=== PATIENT | female | born 1930 | race Caucasian/White ===

== ENCOUNTER 2019-09-22 07:26 | Inpatient (IN) | payer OTHER ==
[~2019-09-22] VITALS: Ht 152.4 cm; Wt 45.5 kg
[2019-09-22 07:26] VITALS: BP 176/99
[~2019-09-22 07:26] MED LIST: BONIVA150 MG PO; CALCIUM + VITA1 EACH; CALCIUM 600 MG1 EAC2 PO; LEVOTHYROXIN0.088 MG PO; MAGNESIUM OXID400 MG PO; NORCO 5-325 TA1 EACH PO; PRAVACHOL20 MG PO; PREMARIN VAGI42.5 G1 VAG; PREMARIN0.45 MG PO
[2019-09-22] MEDS ORDERED: VITAMIN B12-FO1 EAC1 PO (07:43)
[2019-09-22 07:57] LABS: HEMOGLOBIN 13.2 gm/dL (12.0-15.0); MCH 31.7 pg (26.0-34.0); MCHC 32.9 g/dL (28.0-37.0); MCV 96.3 fL (80.0-100.0); PLATELET COUNT 233 thou/uL (150-400); RBC 4.16 mil/uL (4.20-5.00); RDW 14.4 % (10.5-14.5); WBC 5.5 thou/uL (4.0-11.0)
[2019-09-22 08:23] LABS: ANION GAP 8 mmol/L (7-16); BUN 8 mg/dL (7-18); CALCIUM 9.2 mg/dL (8.5-10.1); CHLORIDE 103 mmol/L (98-107); CO2 28 mmol/L (21-32); CREATININE 0.8 mg/dL (0.6-1.0); GLUCOSE 95 mg/dL (74-106); POTASSIUM 3.7 mmol/L (3.5-5.1); SODIUM 139 mmol/L (136-145)
--- NOTE | 2019-09-22 08:26 | EKG ---
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: ESHEETS : [id number] Requested By: Anuj Castro Order Number: [id number] MD: Jose Antonio Arguello Measurements Intervals [place] Rate: 82 P: 72 ID: 110 QRS: 66 QRSD: 91 T: 45 QT: 369 QTc: 431 Interpretive Statements Sinus rhythm Nonspecific ST segment abnormality Compared to ECG 05/23/2015 04:57:39 No significant changes Electronically Signed On 09-22-2019 8:26:08 BUILDING DRAFTING OFFICER by Jose Antonio Arguello [email or web address] <ELECTRONICALLY SIGNED> By: Jose Antonio Arguello MD, [facility] 09/22/19 0826 0735 0735 Jose Antonio Arguello MD, FACC /EPI
[2019-09-22 08:32] LABS: ABSOLUTE NEUTROPHILS 2.3 thou/uL (1.4-8.2); ANISOCYTOSIS SLIGHT
[2019-09-22 08:33] LABS: ALBUMIN 3.7 g/dL (3.4-5.0); MAGNESIUM 2.1 mg/dL (1.8-2.4); SGOT 12 U/L (15-37); SGPT 8 U/L (30-65); TOTAL BILIRUBIN 0.7 mg/dL (<0.1-1.0); TOTAL PROTEIN 7.1 g/dL (6.4-8.2); TROPONIN-I <0.06 ng/mL (<0.06)
[2019-09-22 08:34] LABS: SALICYLATE < 2.8 mg/dL (2.8-20.0)
[2019-09-22 09:01] LABS: URINE BILIRUBIN NEGATIVE (Negative); URINE BLOOD NEGATIVE (Negative); URINE CLARITY CLEAR; URINE COLOR YELLOW; URINE GLUCOSE-RANDOM* NEGATIVE (Negative); URINE KETONES NEGATIVE (Negative); URINE LEUKOCYTES-REFLEX NEGATIVE (Negative); URINE NITRITE-REFLEX NEGATIVE (Negative); URINE PROTEIN (DIPSTICK) NEGATIVE (Negative); URINE SPECIFIC GRAVITY <= 1.005 (1.005-1.035); URINE UROBILINOGEN 0.2 E.U./dl (0.2-1.0)
[2019-09-22 09:10] LABS: AMP/METHAMP Negative (Negative); BARBITURATES Negative (Negative); BENZODIAZEPINES Negative (Negative); COCAINE Negative (Negative); METHADONE Negative (Negative); OPIATES Negative (Negative); PCP Negative (Negative)
--- NOTE | 2019-09-22 12:38 | NUR ---
VÍCTOR DILL-NEPHANY [phone] IRENE COHEN-SON [phone]
--- NOTE | 2019-09-22 15:38 | NUR ---
JAMI NATION [phone]
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
[2019-09-22 22:00] VITALS: BP 155/103
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
[2019-09-23 01:27] VITALS: BP 155/103
[2019-09-23 08:30] VITALS: BP 113/67
[2019-09-23 08:48] VITALS: BP 113/67
--- NOTE | 2019-09-23 09:19 | NUR ---
PT UP THIS AM. PT OUT IN DINNING ROOM TO EAT. PT TOOK MEDS WITHOUT ANY ISSUES. PT EATS AND GOES BACK TO HER ROOM. PT WITHDRAWN TO ROOM.
--- NOTE | 2019-09-23 11:30 | NUR ---
PT CALLED RIOS FARRELL AND STATED SHE WANTS TO GO HOME AND SHE WILL TALK TO HIM ABOUT IT LATER. NEPHEW CALLED THIS COMMERCIAL TECHNICIAN AND WANTED TO KNOW IF SHE IS DISCHARGED. PT IS NOT DISCHARGED PER DR. WHYTE. NEPHEW GOT UPSET WITH DR. PT SAID FUCK YOU TO NEPHEW WHEN HE WAS NOT ABLE TO COME GET HER.
--- NOTE | 2019-09-23 12:31 | NUR ---
PT ATE LUNCH, THEN WENT BACK TO ROOM.
--- NOTE | 2019-09-23 13:49 | NUR ---
Miguel A spoke with nephkaren Leon and he lives out of town, he was able to provide information for intake. He reported that pt lives in [place] and that she will stay at Ap's ( nephew ) a few times a week. 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 Edward stated that he has financial DPOA and that he did not think she had a medical DPOA. Several attempts to reach Ap [phone] and left VMs. Son Андрей reported that pt has medicaid and medicare and is non medication compliant and they have an estranged relationship. Pt is adament about returning home and was defensive and anxious.
[2019-09-23 14:49] LABS: FOLIC ACID 8.7 ng/mL (8.6-58.9); TSH 7.807 uIU/mL (0.358-3.740)
--- NOTE | 2019-09-23 19:21 | NUR ---
PATIENT HAS BEEN UP AND OUT ON THE UNIT INTERMITTENTLY. PATIENT TOOK ALL MEDICATIONS WHOLE WITHOUT DIFFICULTY. PATIENT IS EATING MEALS, AND DRINKING FLUID WELL. PATIENT DENIES SUICIDAL/HOMICIDAL IDEATION. PATIENT RATED DEPRESSION 6/10, "BECAUSE I WANT TO GO HOME". ANXIETY RATED 8/10. " AM ANXIOUS BECAUSE I AM HERE". PATIENT C/O HEADACHE RATED 10/10 PRN TYLENOL GIVEN, WITH POSITIVE EFFECT. WHEN REASSESED, PATIENT STATES "I FEEL BETTER NOW". NO FURTHER C/O PAIN VOICED. PATIENT DENIES AUDITORY/VISUAL HALLUCINATION. AFFECT IS FLAT, MOOD DEPRESSED, NO SIGN OF ACUTE DISTRESS NOTED AT THIS TIME, WILL MONITOR FOR SAFETY.
[2019-09-23 19:33] VITALS: BP 109/67
--- NOTE | 2019-09-24 01:38 | NUR ---
Care assumed of patient at 1915: Patient sleeping in bed at start of shift. Patient easily arousable. Patient woken for nursing assessment and medication administration. Patient denies SI/HI/AH/VH. Patient alert and oriented x2. Patient stated the month was July and that she was admitted for chest pain. Patient was able to be oriented to current month. Patient asked if she was having any delusional or paranoia thoughts. Patient declined. Patient did not have any behaviors that showed she was experiencing delusional or paranoia behaviors. Denies pain or discomfort. Patient asked which medication was ordered at bedtime. Educated patient that she had Calcium/Vitamin D and sleeping medicine. Patient declined sleeping medicine so Trazodone was removed from her hand. She did take Calcium/Vitamin D and Haldol without incident. Patient ambulates with cane. Order obtained from Dr. Diehl for patient to use cane for ambulation while on unit. Order also obtained for PT to consult due to unsteady gait, poor balance, decrease in ADL function. Patient continent of bladder this evening and did have a small bowel movement. Patient has been sleeping most of the shift with no incident.
--- NOTE | 2019-09-24 07:00 | NUR ---
Assumed care of patient this am. Patient in bed responding to questions appropriatly. Patients affect soft and relaxed. Patient ambulates with a cane. Patient complained of some soreness in her hip. Patient takes medications whole. Patient calm, content, and pleasant. Assessment reveals clear breath sounds, active bowel sounds, and s1 s2 present.
[2019-09-24 07:30] VITALS: BP 115/68
[2019-09-24 07:50] VITALS: BP 115/68
--- NOTE | 2019-09-24 11:16 | NUR ---
Miguel A spoke at length with pt's nephew virginia and he described that they live very nearby and she comes over to his house frequently. He is willing to be the DPOA. He will be visiting with his fmaily over and they will discuss plans for her d/c and what they are willing / able to help with. MIGUEL A will follow up with them on Sunday and requested a family meeting.
[2019-09-24 20:38] VITALS: BP 153/63
--- NOTE | 2019-09-25 02:42 | NUR ---
IN BED ENTIRE EVENING. DID WAKE UP AND TAKE MEDS WITHOUT DIFFICULTY, AND HAS BEEN UP FOR TOILETING SELF. BREATH SOUNDS CLEAR. BOWEL SOUNDS ACTIVE. NO APPARENT DISTRESS. NO C/O. AFFECT MILDLY ANXIOUS WHEN WOKEN. MOOD DEPRESSED.
--- NOTE | 2019-09-25 07:00 | NUR ---
Assumed care of patient this am. Patient in bed. Patient complains of generalized pain. Patients affect tense. Patient ambulates with walker. Patient takes medications whole. Patients assessment reveals clear breath sounds, active bowel sounds, and s1 s2 upon auscultation.
[2019-09-25 07:30] VITALS: BP 127/67
[2019-09-25 10:28] VITALS: BP 127/67
[2019-09-25 19:41] VITALS: BP 95/49
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
--- NOTE | 2019-09-26 00:41 | NUR ---
ASSUMED CARE OF PATIENT ON 09/25/19 AT APPROXIMATELY 1915, PATIENT HAS BEEN IN HER ROOM IN BED WITH EYES CLOSED THAT OPEN SPONTANEOUSLY TO MY VOICE. SHE APPEARS WITH A BRIGHT AFFECT. SHE IS CALM AND COOPERATIVE, FOLLOWS DIRECTIONS, AND IS PLEASANT. SHE DENIES FEELINGS OF DEPRESSION ET ANXIETY, SHE DENIES SI HI AND HALLUCINATIONS NOR DOES SHE APPEAR TO BE RESPONDING TO INTERNAL STIMULI. SHE INTERACTS APPROPRIATELY WITH ROOMMATE. DENIES MEDICAL CONCERNS WITH NO S/S OF DISTRESS. NURSING WILL MAINTAIN Q12 CHECKS TO ENSURE SAFETY AT ALL TIMES.
[2019-09-26 08:09] VITALS: BP 127/85
--- NOTE | 2019-09-26 11:02 | NUR ---
Miguel A sent a vm to Ap for f/u on a family meeting set up for [facility] week
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
--- NOTE | 2019-09-26 15:03 | NUR ---
AT 0715 ASSUMED CARE OF PATIENT ON 09/26/19. PATIENT SITTING AT TABLE WITH OTHER PATIENTS INCLUDING ROOMMATE. INTERACTS WITH OTHERS WELL. NO COMPLAINS AT THIS TIME. SHE IS CALM AND COOPERATIVE, DENIES ANY SI/HI AND AVH. [id number] PATIENT IN BED RESTING WITH EYES CLOSED. PATIENT APPEARS TO BE SAD THAT HER ROOMMATE MAY BE LEAVING. STATES "WE BONDED VERY WELL". AT 1500 PATIENT IN ROOM WITH LIGHTS OFF RESTING. COMPLAINTS OF GENERALIZED PAIN, STATES "MY PAIN IS MAINLY IN MY BACK". TYLENOL 650MG PO PRN GIVEN AT THIS TIME. PATIENT COOPERATIVE AND FOLLOWS DIRECTIONS WELL.
[2019-09-26 20:06] VITALS: BP 108/57
--- NOTE | 2019-09-27 00:06 | NUR ---
1909-Report received from day shift nurse and care assumed. Reanna was in her room lying down and resting at shift start. She was compliant with assessement, said she had "aches all over" rated 5/10 and no other c.o. She had a flat to bright affect. She said she ambulated well today pushing the wheelchair which was in her room explaining how she does it. She was given Tylenol 650 mg. po with her HS meds. then and she has slept well since then.
[2019-09-27 08:59] VITALS: BP 125/81
[2019-09-27 12:59] VITALS: BP 125/61
--- NOTE | 2019-09-27 13:03 | NUR ---
0659 Report received from overnight shift, patient was up in day room when shift started. Patient ate breakfast and took medication without incidence. Patient quiet cooperative.
[2019-09-27 20:08] VITALS: BP 153/86
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
[2019-09-28 09:26] VITALS: BP 126/62
[2019-09-28 12:31] VITALS: BP 126/62
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
[2019-09-28 20:24] VITALS: BP 141/77
--- NOTE | 2019-09-29 04:50 | NUR ---
1909-Report received from day shift nurse and care assumed. She was in her room and said she had a good day, had a bright affect, said she had generalized pain all-over, was compliant with her HS meds. and given Tylenol prn and it was effective. She was given topical gel also applied to her rt. shoulder/upper arm for discomfort. She slept soundly all nite tonight awakening to toilet a couple times.
--- NOTE | 2019-09-29 09:56 | NUR ---
PATIENT HAS BEEN CALM AND AGREEABLE - INDEPENDENT AND UP IN DINING AREA AT CHANGE OF SHIFT. PATIENT MEDICATION COMPLIANT. RESPONSIVE TO QUESTIONS. SMILING AND PLEASANT. PATIENT REQUESTED SHOWER THIS MORNING AND ADVISED WOULD ASSIST AFTER ACTIVITY GROUP AND BREAKFAST. PATIENT DENIES ANY S/I OR H/I - STATED HAD POOR SLEEP - THOUGH REPORT STATED SHE HAD SLEPT OVER TEN HOURS. PATIENT MAKES NEEDS KNOWN. QUIET - STAYS TO HERSELF. RETURNED TO HER ROOM AFTER GROUP TO REST.
[2019-09-29 10:21] VITALS: BP 129/69
--- NOTE | 2019-09-29 12:29 | NUR ---
Pt when available participates to full abilities. Attempts excersises and activities. Positive and polite demeanor with others. Will agree when asked to some A/V stimuli but not visually obvious to myself during groups. I believe she dismisses herself when overstimulated. On track to achieving RT goals.
[2019-09-29 20:13] VITALS: BP 135/77
--- NOTE | 2019-09-30 05:51 | NUR ---
191-Report received from day shift and care assumed. She had a bright affect, polite, cooperative with all HS meds., continent, ambulated well with her cane, used fall precautions, and slept well tonite. She denied having any delusions when assessed, except said she is "burning inside and out". T=99.7 F. c.o. all over pain at HS and given Tylenol prn and she slept well urinated in the night one time.
[2019-09-30 07:57] VITALS: BP 102/52
[2019-09-30 09:38] VITALS: BP 102/52
--- NOTE | 2019-09-30 10:04 | NUR ---
THE PATIENT HAS BEEN QUIET AND COOPERATIVE THIS AM. SHE HAS BEEN COMPLIANT WITH MEDICATIONS. THE PATIENT IS PLEASANT. SHE AMBULATES WITH A CANE AND IS UP AD GANESH POSSIBLE STAND BY AT TIMES. SHE DENIED HI/SI AND PAIN. SHE EXPRESSED THAT SHE HAS BURNING FROM HER HEAD TO HER TOES AND IT WAS DUE TO THE FUMES IN HER ROOM. SHE IS CONTINENT WITH BRP. SHE IS ALERT AND ORIENTED TO SELF AND PLACE. CONTINUE TO MONITOR THE PATIENT.
--- NOTE | 2019-09-30 13:14 | NUR ---
Assess for length of stay on [facility] unit. Pt eats 80-100% of meals of regular diet. BMI on low side 19, and wt has been stable for past week. Folate level was low 8.7-started on folic acid supplementation. B12 wnl. Low nutrition risk
--- NOTE | 2019-09-30 14:15 | NUR ---
MONICA and Dr deleon met with pt's DPOA son Андрей Heath and nephew Ap, inlcuded her DIL. Pt was present for this meeting. Pt has agreed to go to memory care and wants to have a relationship with her family. Pt understands the medicaid process and is willing to participate. Sw educated family on their role and expectations to find placement for this pt. Sw provided them with a list of placements. Sw also completed and submitted the DA 124 abc to [facility] today for a level II screen. Family will be providing SW at least LTC choices to send the referral to before TR
--- NOTE | 2019-09-30 15:47 | NUR ---
I have reviewed the documentation by JOSÉ ANTONIO BILL from 09/30/19 to 09/30/19 and I concur with it. OLE WYNN
[2019-09-30 19:53] VITALS: BP 124/74
--- NOTE | 2019-10-01 05:51 | NUR ---
1909-Report received from day shift nurse and care assumed. She had a bright affect and c.o. left hip pain and Diclofenec was applied with relief of discomfort. She was med. compliant with HS po meds. whole with applesauce but refused Jeremiah nasal lubricant saying it "burned". She ambulated with stand by assist to the bathroom, continent, and bed alarm used. She denied having any delusions. She slept well.
--- NOTE | 2019-10-01 07:00 | NUR ---
Assumed care of patient this am. Patient resting in bed comfortably. Patient calm and compliant and complains of pain in her hips. Patient ambulates with a walker. Patient takes medications whole. Patients assessment reveals clear breath sounds, active bowel sounds, and s1 s2 with auscultation. Patients affect relaxed.
[2019-10-01 09:15] VITALS: BP 122/69
--- NOTE | 2019-10-01 20:02 | NUR ---
ASSUMED CARE @ ABOUT 19:15, IN ROOM, IN BED, AWAKE AND RESPONDS TO VOICE. HRRR, LUNGS CTA, ABD SOUNDS PRESENT, REPORTS NO BM TODAY OR YESTERDAY. REPORTS PROBLEMS WITH POISON THAT COMES OUT OF VENTS AND MAKES BREATHING BURN. REPORTS THAT SHE DOES NOT SEE THE POISON DUST HERE IN THE HOSPITAL, BUT POSSIBLY IT IS HERE AND SHE COULD ONLY SEE THE RESULTS. CALM AFFECT, WILL CONTINUE TO MOITOR Q 12 MINUTES FOR PATIENT SAFETY.
[2019-10-01 20:25] VITALS: BP 136/70
--- NOTE | 2019-10-01 23:05 | NUR ---
REQUESTED AND THEN REFUSED A COUGH DROP/LOSANGE. REFUSED NASAL MOISTURIZER. SLEEPING IN BED AT THIS WRITING, RESPIRATIONS EVEN AND UNLABORED, EYES CLOSED. BED IN LOW POSITION, BED ALARM SET, WILL CONTINUE TO MONITOR Q 12 MINUTES FOR PATIENT SAFETY.
[2019-10-02 03:56] VITALS: BP 136/70
--- NOTE | 2019-10-02 05:36 | NUR ---
SLEPT 9.4 HOURS OVERNIGHT.
[2019-10-02 08:21] VITALS: BP 118/63
--- NOTE | 2019-10-02 11:38 | NUR ---
PATIENT WAS UP AND OUT ON THE UNIT, SITTING IN DAY ROOM WHEN CARE ASSUMED. APPETITIE IS GOOD, HAD BREAKFAST. PATIENT TOOK ALL MORNING MEDICATION WHOLE WITHOUT DIFFICULTY. PATIENT PARTICIPATING IN GROUP THERAPY. NO HALLUCINATION OR DELUSIONAL STATEMENT MADE AT THIS TIME. PATIENT DENIES SUICIDAL/HOMICIDAL IDEATION. SHE DENIES DEPRESSION/ANXIETY. AFFECT IS FLAT, MOOD IS CALM. PATIENT REPORTS ADEQUATE SLEEP, HAD BOWEL MOVEMENT ON 10/01/19. NO SIGN OF ACUTE DISTRESS NOTED AT THIS TIME, WILL MONITOR FOR SAFETY.
--- NOTE | 2019-10-02 12:53 | NUR ---
SW received a notice that this pt will be refered for a Level II to the State of [place].
[2019-10-02 20:00] VITALS: BP 105/61
--- NOTE | 2019-10-03 03:10 | NUR ---
ASSUMED CARE AT ABOUT 19:15 ON 10/02/19, IN HER ROOM, IN BED, AWAKENED BY VOICE CONTACT, AND COOPERATED WITH ASSESSMENT, HRRR, LUNGS AUSCULTATED CLEAR, ABD SOIUNDS NORMOACTIVE X 4 Q, REPORTS HAD A BM ON 10/02. ORIENTED X 2, CALM AND PLEASANT AFFECT. DENIES DEPRESSION, SI AND HI. DOES NOT SPEAK OF CURRENT HALLUCINATIONS OR DELUSIONS. TAKES MEDICATIONS WHOLE WITH THIN WATER, ALLOWS NASAL MOISTURISER TO BE APPLIED TO NASAL PASSAGES, ALLOWS VOLTARIN CREAM TO BE APPLIED TO LEFT KNEE AND BACK. BED IN LOW POSITION, BED ALARM SET, WILL CONTINUE TO MONITOR Q 12 MINUTES FOR PATIENT SAFETY.
--- NOTE | 2019-10-03 06:30 | NUR ---
SLEPT 10 HOURS OVERNIGHT.
--- NOTE | 2019-10-03 07:00 | NUR ---
Assumed care of patient this am. Patient sitting [facility] in chair [facility]. Patients affect soft and bright. Patient ambulates with walker. Patient takes medications whole. Patients appearance neat and clean. Patients assessment reveals clear breath sounds, active bowel sounds, and s1 s2 heard with auscultation.
[2019-10-03 07:30] VITALS: BP 123/78
[2019-10-03 08:49] VITALS: BP 123/78
--- NOTE | 2019-10-03 13:51 | NUR ---
Pt has been accepted to [facility] in [place], Sw waiting to hear back from [place] as this is closer for family to visit
[2019-10-03 20:24] VITALS: BP 114/65
--- NOTE | 2019-10-04 02:49 | NUR ---
ASSUMED CARE OF PT FOR THIS EVENING SHIFT. SHE HAS BEEN IN BED SINCE THE START OF THIS SHIFT. PLEASANT AND COOPERATIVE WITH ASSESSMENT PROCESS AND MEDICATIONS. NO APPARENT DISTRESS. NO C/O VOICED
[2019-10-04 07:55] VITALS: BP 118/65
[2019-10-04 12:22] LABS: URINE BILIRUBIN NEGATIVE (Negative); URINE BLOOD NEGATIVE (Negative); URINE CLARITY CLEAR; URINE COLOR YELLOW; URINE GLUCOSE-RANDOM* NEGATIVE (Negative); URINE KETONES NEGATIVE (Negative); URINE LEUKOCYTES-REFLEX NEGATIVE (Negative); URINE NITRITE-REFLEX NEGATIVE (Negative); URINE PROTEIN (DIPSTICK) NEGATIVE (Negative); URINE SPECIFIC GRAVITY <= 1.005 (1.005-1.035); URINE UROBILINOGEN 0.2 E.U./dl (0.2-1.0)
--- NOTE | 2019-10-04 17:54 | NUR ---
Alert, cooperative and compliant. Denies SI/HI. No s/o distress. States she has generalized discomfort all over and asked to change pants d/t current pants being too tight around abdomen. Also states that she is only able to pass very small amounts of urine and that it bang. States she has had UTIs all her life and she thinks she has one. FAGOTER Aboud notified, straight cath UA done without difficulty. Returned approximately 250 cc clear yellow urine, sent per order. Breath sounds clear t/o, bilaterally equal. Regular HR auscultated. Color pink with brisk capillary refill and palpable peripheral pulses. Active bowel sounds over soft, slightly rounded abdomen. Sits majority of time in wheelchair but is able to ambulate with slow, steady gait with walker. 1800 Participating in groups. No s/o distress. Cooperative with meds and cares.
[2019-10-04 21:20] VITALS: BP 125/71
--- NOTE | 2019-10-04 22:09 | NUR ---
ASSUMED CARE @ 19:15, IN BED AWAKENED TO APPROACH AND COOPERATED WITH ASSESSMENT, HRRR S1S2 NOTED, LUNG SOUNDS AUSCULTATED CLEAR TO ALL CERNA, BOWEL SOUNDS PRESENT X 4 Q. HS MEDS TAKEN WHOLE WITH WATER. A&O X 4. VOLTARIN CREAM APPLIED TO BACK AND LEFT KNEE, ALSO LEFT ARM. AYE MOISTURING GEL APPLIED TO EXTERIOR OF NOSE, PT RESISTED APPLICATION TO INTERIOR OF NOSTRILS. BED IN LOW POSITION, BED ALARM SET, WILL CONTINUE TO MONITOR Q 12 MINUTES FOR PATIENT SAFETY.
[2019-10-05 00:40] VITALS: BP 125/71
--- NOTE | 2019-10-05 05:50 | NUR ---
SLEPT 10.4 HOURS OVERNIGHT. PICKED R NOSTRIL AND IT BLED. REFUSED HS, & 0600 AYE NASAL MOISTURIZER.
[2019-10-05 09:39] VITALS: BP 130/70
[2019-10-05 10:16] VITALS: BP 130/70
--- NOTE | 2019-10-05 10:28 | NUR ---
ASSUMED CARE AT 0700. PT.WAS ON THE UNIT IN A W/C. SHE WAS COMPLIANT AND COOPERATIVE WITH MEDICATIONS. SHE WENT TO MORNING MEETING. SHE IS DENYING SI/HI. SHE IS EATING ON THE UNIT. SHE DOES NOT INTERACT WITH OTHER PEERS MUCH. MOSTLY ISOLATIVE ON THE UNIT.
[2019-10-05 19:54] VITALS: BP 143/73
--- NOTE | 2019-10-05 22:22 | NUR ---
ASSUMED CARE @ 19:15 ON 10/05/19, IN BED, AWAKENS TO VOICE, COOPERATED WITH ASSESSMENT, HRRR, LUNGS CTA, ABD NORMOACTIVE X 4 Q. HS MEDS TAKEN WHOLE WITH WATER. PATIENT APPLIED AYE NASAL MOISTURE GEL TO NASAL PASSAGES AND ESTROGEN CREAM TO VAGINAL AREA. VOLTAREN CREAM APPLIED TO BACK, LEFT ARM AND L KNEE. DENIES SI AND HI. DENIES AH AND VH. IN BED, BED IN LOW POSITION, BED ALARM SET, WILL CONTINUE TO MONITOR Q 12 MINUTES FOR PATIENT SAFETY.
[2019-10-06 02:30] VITALS: BP 143/73
--- NOTE | 2019-10-06 05:49 | NUR ---
SLEPT 11 HOURS OVERNIGHT
[2019-10-06 07:30] VITALS: BP 125/72
[2019-10-06 08:36] VITALS: BP 125/72
--- NOTE | 2019-10-06 08:40 | NUR ---
MONICA spoke with [facility] and clarified the mandatory 15 minute checks on all the patients and faxed weekend updates [phone] per their request.
--- NOTE | 2019-10-06 10:01 | NUR ---
Assumed care of patient this am. Patient in bedroom sitting on side of bed. Patient in fair spirits. Patient complains of itching in the parker area. Patient calm and compliant. Patient takes medications whole. Patient ambulates with a walker or wheel chair. Patients affect soft. Patients assessment reveals clear breath sounds, active bowel sounds, and s1 s2 heard upon auscultation. Vital signs stable.
[2019-10-06 19:58] VITALS: BP 112/63
[2019-10-06 21:37] VITALS: BP 112/63
--- NOTE | 2019-10-06 23:17 | NUR ---
ASSUMED CARE OF PATIENT AT 1900. PATIENT WAS LAYING IN BED. SHE IS A/0 X 3-4. PATIENT DENIES PAIN BUT STATES THAT HER "PRIVATE AREA POOLE AROUND VAGINA AND URETHRA." EXPLAINED THAT THE ARE IS RED AND THE DR HAD ORDERED NYSTATIN CREAM TO APPLY TO AREA. SHE HAD MENTIONED TO NURSE ON DAY SHIFT THAT IT WAS ITCHING TOO. NYSTATIN CREAM APPLIED TO AREA WITH HS MEDS THAT SHE TOOK WHOLE. LUNGS CTA BILATERALLY. BOWEL SOUNDS POSITIVE X 4. PATIENT HAD BM X 1 TODAY. HEART REGULAR. ASSISTED PATIENT UP TO [facility] WHERE SHE VOIDED. SHE IS CONTINENT. BED ALARM ON AND BED IN LOW POSITION. WILL CONTINUE TO MONITOR. PATIENT IS COMPLIANT WITH CARES AND IS CALM TONIGHT. PATIENT SLEEPING AT THIS TIME.
--- NOTE | 2019-10-07 04:29 | NUR ---
PT HAS SLEPT WELL THROUGH THE NIGHT. SHE HAS BEEN UP TWICE TO SIT ON THE BSC. SHE DENIES PAIN. PATIENT FALLS BACK TO SLEEP QUICKLY. PATIENT IS CALM AND COOPERATIVE. SHE PARTICIPATES AND DOES MOST OF HER CARES WITH SUPERVISION.
--- NOTE | 2019-10-07 04:39 | NUR ---
PATIENT UP TO BSC JUST NOW. PATIENT STATES THAT PILY AREA IS BURNING AND SHE THINKS IT'S FROM THE NYSTATIN CREAM. SHE STATED BEFORE NYSTATIN CREAM WAS STARTED TONITE THAT SHE HAD BURNING AROUND VAGINAL AND URETHRA AREA. WILL CONTINUE TO MONITOR. SHE REFUSES NYSTATIN AT THIS POINT.
--- NOTE | 2019-10-07 08:18 | NUR ---
10/06/19 Monica spoke with Oscar in [place] and asked for the referrals to be sentr to [facility], [facility], and [facility]. He reported that Андрей is [place] and struggles with the phone and asked that we communicate via email. He also reported that Андрей did not like [facility]. So [facility] pt. MONICA emailed Андрей and asked him to look at both of these [facility] in the next 24 hrs and he replied that he would. MONICA also saw him during the visiting times and confirmed his cooperation.
--- NOTE | 2019-10-07 08:54 | NUR ---
Followup: continues to eat adequately and wts are staying stable at 100 lb past several weeks. Low nutrition risk
[2019-10-07 10:17] VITALS: BP 93/54
--- NOTE | 2019-10-07 10:36 | NUR ---
PATIENT WAS IN DAYROOM SITTING BY BREAKFAST TABLE WHEN CARE ASSUMED. PATIENT TOOK ALL MORNING MEDICATION WHOLE WITHOUT DIFICULTY. APPETITE IS GOOD, PATIENT IS ABLE TO FEED SELF. PATIENT PARTICIPATED IN GROUP THERAPY. SHE IS CALM, COOPERATIVE WITH CARE. PATIENT REQUESTED TO GO BACK TO BED AFTER GROUP THERAPY. THIS RN ASSISTED PATIENT BACK TO ROOM. PATIENT IN W/C THIS MORINING DUE TO C/O LEG BEING STIFF. PATIENT WAS ABLE TO AMBULATE AROUND THE ROOM, AND THE BATHROOM WITHOUT DIFFICULTY. PATIENT C/O GENERALIZED PAIN, TOPICAL PRN PAIN MEDICATION APPLIED, THIS RN WAS KIARA THE MED, PATIENT STATES "IT FEELS BETTER ALREADY". PATIENT DENIES SUICIDAL/HOMICIDAL IDEATION. SHE DENIES BEING DEPRESSED. NO FURTHER COMPLAIN OF PAIN VOICED. AFFECT IS FLAT, MOOD IS DEPRESSED. PATIENT CURRENTLY IN BED TAKING A NAP. WILL CONTINUE TO MONITOR FOR SAFETY.
[2019-10-07 18:04] VITALS: BP 93/54
[2019-10-07 19:51] VITALS: BP 121/60
[2019-10-07 21:45] VITALS: BP 121/60
--- NOTE | 2019-10-07 23:13 | NUR ---
PATIENT HAS BEEN IN ROOM IN HER BED SINCE 190. SHE WAS GIVEN TYLENOL WITH HER HS MEDS TONIGHT D/T HER BODY HAS ALOT OF STIFFNESS. SHE STATES THAT SHE HAS NOT URINATED MUCH TODAY AND HAS NOT HAD ANY BURNING OR DISCOMFORT IN VAGINAL AREA. SHE WAS UP 5 TIMES LAST NIGHT URINATING AND C/O BURNING. PATIENT REFUSES THE NYSTATIN CREAM FOR YEAST TONIGHT. SHE IS CONVINCED THAT SHE IS ALLERGIC TO IT SINCE IT POOLE WHEN SHE PUTS IT ON. HOWEVER THE SKIN AROUND VAGINAL AREA WAS BURNING WHENEVER SHE URINATED OR GOT WET. SPOKE WITH DR WHYTE WHEN HE CALLED AND LET HIM KNOW THIS. HE IS PUTTING IN NEW ORDERS AND DISCONTINUING THE NYSTATIN CREAM. I ASSESSED SKIN IN PERINEAL AREA. IT IS VERY DRY A LIGHT BROWN/PINK IN COLOR. SLIGHT REDNESS AT VAGINAL AREA OPENING. PATIENT REFUSED HER SODIUM CHOLORIDE NASAL GEL TONIGHT ALSO. PATIENT HAS A SAD AFFECT. PATIENT NEEDED ASSISTANCE TURNING HERSELF IN BED TONIGHT D/T STIFFNESS. ARACELIS IS ASSIST X 1 AND USES WC WHEN UP. SHE USES BSC DURING THE NIGHT. PATIENT REFUSES TO WEAR YELLOW NON SLIP SOCKS BUT WILL WEAR HER RUBBER SOLED SHOES WITHOUT SOCKS WHEN SHE IS UP. PT SLEEPING AT THIS TIME. BED IN LOW POSITION AND BED ALARM ON.
--- NOTE | 2019-10-08 08:03 | NUR ---
Miguel A was adviised that Андрей had visited and seemed to like it. MIGUEL A sent him another email asking for follow up and that he could still visit [facility] too. MIGUEL A provided him the phone number and their address again.
[2019-10-08 09:10] VITALS: BP 121/60
[2019-10-08 09:26] VITALS: BP 115/70
--- NOTE | 2019-10-08 13:13 | NUR ---
Pt was accepted at [facility] and family visited and chose it. Sw confirmed this with Amirah at [facility] and she set up transprtation for 1pm. SW reported this to nursing and Dr deleon. This included sending an email to Андрей and pt's nephew. d/c will be 10/09 at 1pm.
--- NOTE | 2019-10-08 14:25 | NUR ---
Assumed care of pt. @ 0700. Pt calm et cooperative this am. Pt took medications without difficulty. Pt c/o generalized pain at am med pass et was given 650mg of Tylenol per her request. Pt ate mels without difficulty. Pt pleasant et sociable with peers on the unit when spoken to. No behaviors noted at this time.
[2019-10-08 20:06] VITALS: BP 135/55
--- NOTE | 2019-10-09 04:23 | NUR ---
1909-Report received from day shift nurse and care assumed. Reanna was cooperative, c.o. overall discomfort and Tylenol given, which was effective. She toileted in the night several times with stand by assist. She had a flat affect, no delusions she said.
[2019-10-09 08:06] VITALS: BP 114/61
[2019-10-09 10:51] LABS: URINE BILIRUBIN NEGATIVE (Negative); URINE BLOOD 3+ (Negative); URINE CLARITY CLOUDY; URINE COLOR YELLOW; URINE GLUCOSE-RANDOM* NEGATIVE (Negative); URINE KETONES NEGATIVE (Negative); URINE NITRITE-REFLEX NEGATIVE (Negative); URINE PROTEIN (DIPSTICK) 2+ (Negative); URINE SPECIFIC GRAVITY 1.015 (1.005-1.035); URINE UROBILINOGEN 0.2 E.U./dl (0.2-1.0)
--- NOTE | 2019-10-09 10:52 | NUR ---
Up to breakfast without s/o distress. Back to room. States she is having generalized pain of 8/10 concentrated in R hip and back. Also has small amount of garner drainage when she wiped after urinating with urinary frequency, urgency and burning. 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
[2019-10-09 11:05] LABS: URINE LEUKOCYTES-REFLEX 3+ (Negative)
[2019-10-09 11:11] LABS: CASTS None Seen /LPF (None Seen); SQUAMOUS 0-3 Few /LPF (0-3)
[2019-10-09 11:12] LABS: BACTERIA-REFLEX 1-9 Few /HPF (None Seen); CRYSTALS None Seen /LPF (None Seen)
[2019-10-09] MEDS ORDERED: HALOPERIDOL 5 MG5 MG PO (11:49)
[2019-10-09] MEDS ORDERED: TRAZODONE HCL50 MG PO (11:49)
[2019-10-09] MEDS ORDERED: KEFLEX500 M1 PO (11:49)
[2019-10-09] MEDS ORDERED: MAGNESIUM400 MG PO (11:50)
[2019-10-09] MEDS ORDERED: PROTONIX40 M1 PO (11:51)
[2019-10-09] MEDS ORDERED: B-12500 MCG PO (11:51)
--- NOTE | 2019-10-09 13:14 | NUR ---
MIGUEL A met with pt's nephew Amadou Fong early this am as he was staying [facility] near the hospital. He had questions about the d/c process, how the admission will take place at the [place]. Miguel A educated him on COMRU, level II screening and the DPOA responsibilities. Miguel A also provided him with the [facility] ombudscedar names and phone numbers. Amadou was very satisfied with these instructions and education.
--- NOTE | 2019-10-11 22:49 | D ---
[facility] [place] [address] DISCHARGE SUMMARY Name: ENDY COHEN Room #: 526A-A [facility] IN M.R.#: [id number] Admission: 09/22/19 Attend Phys: Taz Diehl DO Discharge: 10/09/19 Date of : 34 Report #: [id number] THIS REPORT FOR: //name// CC: Taz Tobar DATE OF SERVICE: 10/09/2019 PSYCHIATRIC DISCHARGE SUMMARY ATTENDING PHYSICIAN: Taz Diehl DO. CNC ROUTER OPERATOR AT THE TIME OF DISCHARGE: Taz Elliott MD DISCHARGE DIAGNOSIS: Schizophrenia, very late onset. Medical comorbidities include hypothyroidism, dysuria. UA had some positives. Urine culture pending. Chronic leg pain with left leg swelling. Venous Doppler negative, protein-calorie malnutrition. Albumin normal at 3.7. She has significantly decreased muscle mass and body height. Of note, the patient was started on Keflex by the hospitalist, I ordered it 3 times a day for 7 days. DISCHARGE MEDICATIONS: As follows: Keflex 500 mg p.o. t.i.d. x 7 days, trazodone 50 mg p.o. at 2200 for sleep, haloperidol 5 mg p.o. b.i.d. for psychosis, magnesium oxide 400 mg per day for supplementation, Anastrazole 5 mg p.o. b.i.d. with breakfast and cyanocobalamin B12 500 mcg p.o. daily, ____ 150 mg tablet once a day, calcium carbonate and vitamin D3 daily. The patient was discharging to the following alf, [facility]. She was transported to the ____. REASON FOR ADMISSION: An 89-year-old female brought to the Emergency Room by her son and nephew complaining of chest pain. She believes there are people coming out to her staying upstairs, ____ HOSPITAL COURSE: The patient was admitted to Geriatric Psychiatry Unit. Haldol was started 5 mg twice a day. The patient ____ psychosis lessened, was less obsessed with no sign of dementia with cognitive screening. PHYSICAL EXAMINATION: VITAL SIGNS: On the day of discharge, temperature 36.6, pulse 86, respirations 18, BP 141/62, O2 sat 99%. MUSCULOSKELETAL: Kyphotic gait ____. MENTAL STATUS EXAMINATION: This is a well-developed, poorly nourished, frail female appearing her stated age. Attention fair. Concentration fair to limited. Speech slow, soft. Thought process is linear and goal directed. [facility] [address] [place] [address] DISCHARGE SUMMARY Name: ENDY COHEN Room #: 526A-A [facility] IN ..#: [id number] Admission: 09/22/19 Attend Phys: Taz Diehl, Discharge: 10/09/19 Date of : 34 Report #: [id number] Thought content: Focused on improving her situation. Denied SI or HI. Denied hopelessness, helplessness. Denied auditory, visual, or tactile hallucinations. Memory not formally tested today. Insight fair to limited. Judgment fair. Fund of knowledge average. PROGNOSIS: For this patient is guarded given her age and having very late onset schizophrenia. <ELECTRONICALLY SIGNED> By: aTz Diehl DO 10/11/19 [id number] Taz Diehl, /nt
== END 2019-10-09 13:25 | DRG 885 ==
LOC: ER 07:26 → SBH 21:44 → EROBS 21:44 → SBH 22:12
PROVIDERS: Emergency Medicine; Nurse Practitioner; Nurse Practitioner Psychiatric/Mental Health; ADMIT Psychiatry & Neurology Psychiatry
DX: F20.9 Schizophrenia, unspecified (principal); E46 Unspecified protein-calorie malnutrition; F03.91 Unspecified dementia, unspecified severity, with behavioral disturbance; F29 Unspecified psychosis not due to a substance or known physiological condition; M81.0 Age-related osteoporosis without current pathological fracture; K21.9 Gastro-esophageal reflux disease without esophagitis; E03.9 Hypothyroidism, unspecified; M19.90 Unspecified osteoarthritis, unspecified site; R30.0 Dysuria; G89.29 Other chronic pain; M79.605 Pain in left leg; Z60.2 Problems related to living alone; R07.9 Chest pain, unspecified; M17.12 Unilateral primary osteoarthritis, left knee; Z86.73 Personal history of transient ischemic attack (TIA), and cerebral infarction without residual deficits; Z90.710 Acquired absence of both cervix and uterus; Z88.6 Allergy status to analgesic agent; Z88.1 Allergy status to other antibiotic agents; Z88.2 Allergy status to sulfonamides; Z88.8 Allergy status to other drugs, medicaments and biological substances
CPT/HCPCS: 10880

== ENCOUNTER 2019-11-11 06:09 | Inpatient (IN) | payer OTHER ==
[~2019-11-11] VITALS: Ht 167.6 cm; Wt 49.1 kg
[~2019-11-11 06:09] MED LIST changes: +B-12500 MCG PO; +HALOPERIDOL 5 MG5 MG PO; +KEFLEX500 M1 PO; +MAGNESIUM400 MG PO; +PROTONIX40 M1 PO; +TRAZODONE HCL50 MG PO; +VITAMIN B12-FO1 EAC1 PO
[2019-11-11 06:10] VITALS: BP 117/66
[2019-11-11] MEDS ORDERED: TYLENOL PO (06:45)
[2019-11-11 06:47] LABS: ABSOLUTE NEUTROPHILS 8.2 thou/uL (1.4-8.2); BASOPHILS 0.2 % (0.0-2.0); EOSINOPHILS 0.1 % (0.0-3.0); HEMATOCRIT 38.7 % (37.0-47.0); HEMOGLOBIN 12.7 gm/dL (12.0-15.0); LYMPHOCYTES 14.3 % (24.0-44.0); MCH 31.7 pg (26.0-34.0); MCHC 32.9 g/dL (28.0-37.0); MCV 96.4 fL (80.0-100.0); MONOCYTES 9.8 % (1.0-8.0); PLATELET COUNT 293 thou/uL (150-400); POLYS 75.6 % (36.0-66.0); RBC 4.01 mil/uL (4.20-5.00); RDW 13.8 % (10.5-14.5); WBC 10.8 thou/uL (4.0-11.0)
[2019-11-11] MEDS ORDERED: SPIRONOLACTONE25 M1 PO (06:47)
[2019-11-11] MEDS ORDERED: LASIX 40 MG TAB40 MG PO (06:48)
[2019-11-11] MEDS ORDERED: SENOKOT8.6 MG PO (06:49)
[2019-11-11] MEDS ORDERED: VOLTAREN GEL 1100 G1 TRANSDERM (06:50)
[2019-11-11 06:53] LABS: CALCIUM 8.4 mg/dL (8.5-10.1)
[2019-11-11 06:59] LABS: ALBUMIN 2.8 g/dL (3.4-5.0); DIRECT BILIRUBIN 0.3 mg/dL (<0.1-0.2); TOTAL BILIRUBIN 0.9 mg/dL (<0.1-1.0); TOTAL PROTEIN 6.9 g/dL (6.4-8.2)
[2019-11-11 07:49] LABS: APTT 24.1 Seconds (24.5-32.8); INR 1.1; PROTIME 11.3 Seconds (9.3-11.4)
[2019-11-11 08:40] VITALS: BP 109/68
[2019-11-11 10:33] VITALS: BP 111/75
[2019-11-11 10:33] LABS: HEMATOCRIT 40.6 % (37.0-47.0)
--- NOTE | 2019-11-11 11:18 | NUR ---
PT ADMITTED AT 1000. PT IS LETHARGIC AND SLIPPING IN AND OUT OF SLEEP. PT DOES RESPOND WITH PHYSICAL STIMULATION. REPORT TAKEN FROM [facility] FROM ER. PT ADMITTED AND MEDICATION RECONCILED. NO FAMILY PRESENT. IV PATENT, WITH NO REDNESS OR SWELLING. FLUIDS INFUSING. HALOPERIDOL PRN ON BOARD IF NECESSARY. PT HAS EDEMA BILATERAL +2. PT BOTTOM IS REDNESS WITH NO BREAKAGE OF THE SKIN. PT TURNED TO THE RIGHT WITH WEDGE. FEET ELEVATED UNDER PILLOW. BED IN LOW POSITION, LOCKED WITH BED ALARM ON. CALL LIGHT IN REACH. VITALS STABLE. SCD'S IN PLACE.
[2019-11-11 17:00] VITALS: BP 112/59
[2019-11-11 19:14] VITALS: BP 135/70
--- NOTE | 2019-11-12 02:45 | NUR ---
ASSESSMENT COMPLETED.PT ALERT TO SELF,CONFUSED AND FORGETFUL.PT HAS AUDITORY HALLUCINATIONS.PT REPEATEDLY STATED THAT SHE WAS GOING TO MISS HER AND WAKE KEEP.PT STATED THAT THE PEOPLE SHE LIVES WITH KEPT TELLING HER THAT AND SHE DOESN'T WANT TO MISS ANY OF THAT.PT WAS REORIENTED TO [facility].PT REPOSITIONED Q2 WHILE IN BED.PT INCONT OF BLADDER,PILY CARE AND BARRIER CREAM APPLIED WITH EACH CHANGE.PT'S HS MED CHANGED FROM PO TO IV PER DR OLMOS'S ORDERS.FALL PRECAUTIONS IN PLACE,CALL LIGHT WITHIN REACH.
[2019-11-12 04:06] VITALS: BP 130/72
[2019-11-12 08:20] VITALS: BP 124/73
--- NOTE | 2019-11-12 09:40 | NUR ---
WOUND CONSULT; THERE WERE NO WOUNDS IDENTIFIED. THE BUTTOCK ERYTHEMA IS BLANCHABLE THIS 89Y OLD WOMAN IS VERY FRAIL AND DOES NOT TURN HERSELF. SHE IS INCONTINENT OF URINE. RECOMMENDATIONS; 1-PUREWICK EXTERNAL CATHETER. 2-BARRIER CREAM TO BUTTOCKS/PILY-AREAS. 3-LOW AIRLASS PUMP 4-FLOAT HEELS DISCUSSED WITH RN
--- NOTE | 2019-11-12 15:24 | NUR ---
INITIAL ASSESSMENT: Pt evaluated for d/c planning needs. Reviewed chart and spoke with nurse, pt and pt's D-I-L. Pt was hospitalized at [facility] and went to [facility] memory care unit in September 2019. Spoke with admissions director at [facility] and asked special events planner to fax clinical information. Spoke with pt's [id number] and nephew. Pt's son and D-I-L plan on pt returning to [facility] on d/c from hospital. Will remain available to assist as needed. [facility] [phone]
--- NOTE | 2019-11-12 17:07 | NUR ---
FAXED CLINICAL UPDATE TO [facility] RECEIVED CONFIRMATION AND LEFT MSG WITH ANNMARIE IN ADM, DP TO FOLLOW.
[2019-11-12 19:35] VITALS: BP 104/49
--- NOTE | 2019-11-13 02:05 | NUR ---
PT WAS OBSERVED LYING ON HER BED AT THE START OF SHIFT.PT ALERT AND CONFUSED. NO S/S OF PAIN NOTED.PT STILL NPO EXCEPT FOR ICE CHIPS.PT INCONT OF B&B,PERICARE DONE WITH EACH INCONTINENCE/BARRIER CREAM APPLIED.PT REPOSITIONED WHILE IN BED,BLE ELEVATED WITH PILOOWS.EXTERNAL CATH IN PLACE.IVF INFUSING ORDERED.PT RESTING ON HER BED AT THIS TIME.FALL PRECAUTIONS IN PLACE,CALL LIGHT WITHIN REACH.
[2019-11-13 03:41] VITALS: BP 138/76
[2019-11-13 05:33] LABS: HEMATOCRIT 35.4 % (37.0-47.0); HEMOGLOBIN 11.5 gm/dL (12.0-15.0); MCH 31.7 pg (26.0-34.0); MCHC 32.5 g/dL (28.0-37.0); MCV 97.5 fL (80.0-100.0); RBC 3.63 mil/uL (4.20-5.00); RDW 14.1 % (10.5-14.5); WBC 9.8 thou/uL (4.0-11.0)
[2019-11-13 05:46] LABS: CALCIUM 7.9 mg/dL (8.5-10.1); CREATININE 0.8 mg/dL (0.6-1.0); POTASSIUM 3.5 mmol/L (3.5-5.1)
[2019-11-13 08:00] VITALS: BP 116/74
--- NOTE | 2019-11-13 08:04 | NUR ---
PT CARE ASSUMED AT 0700. PT STILL SEDATED AND HARD TO AROUSE. Q2 TURNS. SCD'S IN PLACE. FLUIDS RUNNING. IV PATENT WITH NO REDNESS OR SWELLING. BED IN LOW POSITION, LOCKED, WITH BED ALARM IN PLACE. MOUTH SWABED WITH WATER. LOW AIRLOSS PUMP IN PLACE. BARRIER CREAM FOR PT BOTTOM.
--- NOTE | 2019-11-13 14:53 | NUR ---
Following for d/c planning needs. Spoke with Dr Pacheco and plan is for pt to d/c back to [place] tomorrow with hospice. Physician notified facility and spoke with pt's son. Will make arrangements on Sunday for transport.
--- NOTE | 2019-11-13 17:02 | NUR ---
RECEIVED CALL FROM [facility] AND THEY WERE CONTACTED BY JACI STEARNS ON BEHALF OF DR OLMOS AND THEY WILL SEND [facility] OVER THIS BRADY TO EVAL PT FOR HSOPICE CARE BACK AT THE FACILITY.
[2019-11-13 20:00] VITALS: BP 132/75
--- NOTE | 2019-11-14 02:34 | NUR ---
PT WAS SLEEPING ON HER BED AT START OF SHIFT.PT INCONT OF B&B,PERICARE AND BARRIER CREAM DONE WITH EACH INCONTINENCE.PT WAS ABLE TO EAT PUDDING AND YOGURT THAT WAS OFFERED TO HER.PT REPOSITIONED Q2 WHILE IN BED.PT RESTING ON HER BED AT THIS TIME.FALL PRECAUTIONS IN PLACE.CALL LIGHT WITHIN REACH.
[2019-11-14 04:20] VITALS: BP 128/75
[2019-11-14 08:27] VITALS: BP 143/75
--- NOTE | 2019-11-14 10:15 | NUR ---
ASSUMED CARE OF THE PT AT 0700. PT WAS CRYING THIS AM. WOUND ON BUTTOCKS IS SORE, PER PT, AND REDDENED, WITH NO OPEN WOUNDS, BARRIER CREAM APPLIED. PT USES BEDPAN. IV IS DRY AND INTACT. PT REFUSED FLU VACCINE. FALL PRECAUTIONS IN PLACE, CALL LIGHT IS WITHIN REACH AND BED IS IN THE LOWEST POSITION. WILL CONTINUE TO MONITOR THE PT.
--- NOTE | 2019-11-14 15:04 | NUR ---
PT DISCHARGING TODAY TO [facility] WITH [facility] FAXED DC ORDERS/SUMMARY TO FACILITY SPOKE WITH ANNMARIE IN ADM SHE RECEIVED DC ORDERS AND ARRANGED TRANSPORT BY [facility] FOR 1600 TODAY. NOTIFIED PT'S SON (IRENE) OF DC AND TIME OF TRANSPORT. UNIT NOTIFIED AND CHART COPY PER US. RN TO CALL REPORT TO [phone]. PT WILL BE EVALUATED BY [facility] AT FACILITY [facility] AND RECEIVED CONFIRMATION,
== END 2019-11-14 17:00 | disposition hospice, inpatient (51) | DRG 377 ==
LOC: ER 06:09 → EROBS 07:29 → 4S 07:29
PROVIDERS: Emergency Medicine; Internal Medicine Gastroenterology; ADMIT Internal Medicine
DX: K92.2 Gastrointestinal hemorrhage, unspecified (principal); E43 Unspecified severe protein-calorie malnutrition; Z68.1 Body mass index [BMI] 19.9 or less, adult; D62 Acute posthemorrhagic anemia; F20.0 Paranoid schizophrenia; K21.9 Gastro-esophageal reflux disease without esophagitis; M81.0 Age-related osteoporosis without current pathological fracture; Z51.5 Encounter for palliative care; G31.1 Senile degeneration of brain, not elsewhere classified; F02.80 Dementia in other diseases classified elsewhere, unspecified severity, without behavioral disturbance, psychotic disturbance, mood disturbance, and anxiety; N81.9 Female genital prolapse, unspecified; E03.9 Hypothyroidism, unspecified; M19.90 Unspecified osteoarthritis, unspecified site; Z91.81 History of falling; Z98.1 Arthrodesis status; Z79.899 Other long term (current) drug therapy; Z88.1 Allergy status to other antibiotic agents; Z88.5 Allergy status to narcotic agent; Z88.2 Allergy status to sulfonamides; Z88.8 Allergy status to other drugs, medicaments and biological substances; Z87.891 Personal history of nicotine dependence
CPT/HCPCS: 10195